=== PATIENT | male | born 1985 | race African-American/Black ===

== ENCOUNTER 2017-08-26 23:42 | Emergency (ER) | payer MEDICAID ==
[~2017-08-26] VITALS: Ht 172.7 cm; Wt 82.0 kg
[~2017-08-26 23:42] MED LIST: ASPI-864 PO; FURO-151 PO; LOSA25TA12 PO; PHEN-434 PO; PROM6.25 PO; SPIR25TA4 PO
[2017-08-27 01:05] LABS: BASOPHILS % 0.4 % (0.0-2.0); CHLORIDE 106 mEq/L (98-107); EOSINOPHILS % 1.1 % (0.0-5.0); HEMATOCRIT. 47.9 % (42.0-52.0); LYMPHOCYTES % 20.9 % (20.0-50.0); MEAN CORPUSCULAR HEMOGLOBIN 28.3 pg (28.0-32.0); MEAN CORPUSCULAR VOLUME 84.9 fL (80.0-94.0); MEAN PLATELET VOLUME 8.5 fl (7.4-10.4); MONOCYTES % 9.9 % (2.0-8.0); NEUTROPHILS % 67.7 % (40.0-76.0); PLATELET 182 x1000/uL (130-400); RED BLOOD CELL COUNT 5.63 mill/uL (4.7-6.1); RED CELL DISTRIBUTION WIDTH 13.6 % (11.6-14.6)
[2017-08-27 01:14] LABS: CARBON DIOXIDE 23 mEq/L (21-32)
[2017-08-27] MEDS ORDERED: PHENYTOIN SODIUM 1,000 MG in SODIUM CHLORIDE 0.9% 100 ML IV ONE (01:45)
[2017-08-27] MEDS ORDERED: PHENYTOIN SODIUM 1,000 MG in SODIUM CHLORIDE 0.9% 100 ML IV SCH (01:45)
[2017-08-27 04:09] VITALS: BP 137/80
== END 2017-08-27 04:59 | disposition home or self-care (01) ==
LOC: ER 23:50
DX: G40.409 Other generalized epilepsy and epileptic syndromes, not intractable, without status epilepticus (principal); I10 Essential (primary) hypertension; F17.200 Nicotine dependence, unspecified, uncomplicated; F12.10 Cannabis abuse, uncomplicated; Z91.14 Patient's other noncompliance with medication regimen; Z98.890 Other specified postprocedural states; Z79.82 Long term (current) use of aspirin; Z86.73 Personal history of transient ischemic attack (TIA), and cerebral infarction without residual deficits
CPT/HCPCS: 36415; 80053; 80185; 85025; 96365; 99284; J1165; Z7610; J7050

== ENCOUNTER 2018-10-04 08:39 | Emergency (ER) | payer MEDICAID ==
[~2018-10-04] VITALS: Ht 170.2 cm; Wt 73.0 kg
[~2018-10-04 08:39] MED LIST changes: -PROM6.25 PO; +PROM6.254 PO; -SPIR25TA4 PO; +SPIR25TA6 PO
[2018-10-04] MEDS ORDERED: HYDROCODONE/ACETAMINOPHEN 5/325MG TABLET PO ONE (10:00)
[2018-10-04] MEDS ORDERED: ONDANSETRON 4MG ODT PO ONE (10:00)
[2018-10-04 10:36] VITALS: BP 139/88
[2018-10-04] MEDS ORDERED: PHENYTOIN SODIUM EXTENDED 100MG CAPSULE PO ONE (11:15)
== END 2018-10-04 11:30 | disposition home or self-care (01) ==
LOC: ER 08:39
DX: S42.401A Unspecified fracture of lower end of right humerus, initial encounter for closed fracture (principal); R56.9 Unspecified convulsions; Z91.14 Patient's other noncompliance with medication regimen; X58.XXXA Exposure to other specified factors, initial encounter; Y93.89 Activity, other specified; Y92.89 Other specified places as the place of occurrence of the external cause; Y99.8 Other external cause status
CPT/HCPCS: 29105; 36415; 73030; 73080; 80185; 99284; Q0162

== ENCOUNTER 2019-10-30 02:11 | Emergency (ER) | payer MEDICAID ==
[~2019-10-30] VITALS: Ht 172.7 cm; Wt 84.0 kg
[~2019-10-30 02:11] MED LIST changes: -LOSA25TA12 PO; +LOSA25TA26 PO
[2019-10-30] MEDS ORDERED: KETOROLAC 30MG/ML VIAL IV STA (02:43)
[2019-10-30] MEDS ORDERED: SODIUM CHLORIDE 0.9% 1,000 ML IV ONE (02:43)
[2019-10-30 03:26] LABS: CHLORIDE 105 mEq/L (98-107)
[2019-10-30 03:27] LABS: BASOPHILS % 0.8 % (0.0-2.0); EOSINOPHILS % 1.4 % (0.0-5.0); HEMATOCRIT. 48.2 % (42.0-52.0); HEMOGLOBIN. 16.6 g/dL (14.0-18.0); LYMPHOCYTES % 28.7 % (20.0-50.0); MEAN CORPUSCULAR HEMOGLOBIN 29.2 pg (28.0-32.0); MEAN CORPUSCULAR VOLUME 84.8 fL (80.0-94.0); MEAN PLATELET VOLUME 9.4 fl (7.4-10.4); MONOCYTES % 13.6 % (2.0-8.0); NEUTROPHILS % 55.5 % (40.0-76.0); PLATELET 211 x1000/uL (130-400); RED BLOOD CELL COUNT 5.68 mill/uL (4.7-6.1); RED CELL DISTRIBUTION WIDTH 13.6 % (11.6-14.6)
[2019-10-30] MEDS ORDERED: MORPHINE SULFATE 4 MG/ML CPJ (NOT FOR IM USE) IV NR (04:15)
[2019-10-30] MEDS ORDERED: ENALAPRIL 2.5MG/2ML VIAL 2ML IV ONE (05:45)
[2019-10-30] MEDS ORDERED: IOHEXOL-350 100 ML BOTTLE ONE (05:49)
[2019-10-30] MEDS ORDERED: ENALAPRIL 1.25MG/ML VIAL 1ML IV ONE (06:30)
[2019-10-30 07:53] VITALS: BP 136/98
== END 2019-10-30 07:53 | disposition home or self-care (01) ==
LOC: ER 02:11
DX: R07.89 Other chest pain (principal); I10 Essential (primary) hypertension; Z86.73 Personal history of transient ischemic attack (TIA), and cerebral infarction without residual deficits; Z98.890 Other specified postprocedural states
CPT/HCPCS: 36415; 71045; 71275; 80053; 83690; 84484; 85025; 93005; 96374; 96375; 99285; J1885; J2270; J3490; J7030; Q9967

== ENCOUNTER 2021-07-24 09:34 | Emergency (ER) | payer MEDICAID ==
[~2021-07-24] VITALS: Ht 172.7 cm; Wt 82.0 kg
[2021-07-24] MEDS ORDERED: AMOX1TAB16 MT (10:35)
[2021-07-24] MEDS ORDERED: IBUP-2029 MT (10:35)
[2021-07-24] MEDS ORDERED: AMOXICILLIN/POTASSIUM CLAVULANATE 875/125MG TAB PO ONE (10:45)
[2021-07-24 10:54] VITALS: BP 151/91
== END 2021-07-24 10:47 | disposition home or self-care (01) ==
LOC: ER 09:34
DX: K04.7 Periapical abscess without sinus (principal); R00.0 Tachycardia, unspecified
CPT/HCPCS: 93005; 99283